=== PATIENT | male | born 1985 | race Two or more races ===

== ENCOUNTER 2018-02-20 12:27 | Emergency (ER) | payer MEDICAID ==
[~2018-02-20] VITALS: Ht 180.3 cm; Wt 110.5 kg
[2018-02-20 12:35] VITALS: BP 149/94
== END 2018-02-20 13:15 | disposition home or self-care (01) ==
LOC: ED 13:09
DX: L73.9 Follicular disorder, unspecified (principal)
CPT/HCPCS: 99283